=== PATIENT | female | born 1960 | race Caucasian/White ===

== ENCOUNTER 2018-04-14 15:12 | Observation (INO) | END 2018-04-15 13:15 | disposition home or self-care (01) ==

== ENCOUNTER 2019-03-17 07:35 | Day surgery (SDC) | payer BC ==
[~2019-03-17] VITALS: Ht 157.5 cm; Wt 64.8 kg
[~2019-03-17 07:35] MED LIST: ALEN70TA5 PO; LORA10TA3 PO
[2019-03-17 08:30] VITALS: Ht 157.5 cm; Wt 64.8 kg
[2019-03-17] MEDS ORDERED: IRON TAB PO (08:33)
[2019-03-17] MEDS ORDERED: LIDOCAINE 4% SOLUTION 50 ML BTL ONE (09:03)
[2019-03-17 09:05] VITALS: BP 124/77; PULSE 95; RESP 16
[2019-03-17] MEDS ORDERED: ONDANSETRON 4 MG INJ ONE (09:11)
[2019-03-17] MEDS ORDERED: MIDAZOLAM 1 MG/ML 2 ML INJ ONE ×2 (10:08)
[2019-03-17] MEDS ORDERED: FENTAnyl 50 MCG/ML VIAL ONE (10:08)
== END 2019-03-17 12:48 | disposition home or self-care (01) ==
LOC: GIL 07:35
PROVIDERS: ATTEND Internal Medicine Gastroenterology
DX: Z12.11 Encounter for screening for malignant neoplasm of colon (principal); K29.50 Unspecified chronic gastritis without bleeding; K20.8 Other esophagitis
CPT/HCPCS: 43239; 45378; 88305; 88312; J2250; J2405; J3010; Z7610